=== PATIENT | female | born 1950 | race Hispanic/Latino ===

== ENCOUNTER 2018-03-05 18:35 | Emergency (ER) | payer MEDICARE ==
[2018-03-05 18:57] LABS: APPEARANCE,URINE CLOUDY (CLEAR); BILIRUBIN,URINE SMALL (NEGATIVE); COLOR,URINE RED (YELLOW); GLUCOSE, URINE (UA) 500 mg/dL (NEGATIVE); KETONES,URINE 15 mg/dL (NEGATIVE); LEUKOCYTE ESTERASE ,URINE MODERATE (NEGATIVE); NITRATE,URINE POSITIVE (NEGATIVE); OCCULT BLOOD,URINE LARGE (NEGATIVE); PH,URINE 6.5 (5.0-8.0); PROTEIN,URINE >=300 (NEGATIVE)
[2018-03-05] MEDS ORDERED: LIDOCAINE HCL-MPF 1% 2ML VIAL ONE (19:06)
[2018-03-05] MEDS ORDERED: CEFTRIAXONE SODIUM 1 GM ONE (19:07)
[2018-03-05] MEDS ORDERED: PHENAZOPYRIDINE HCL 200 MG TABLET ONE (19:07)
[2018-03-05 19:14] LABS: BACTERIA,URINE Many /HPF (None Seen); RBC,URINE TNTC /HPF (0-1); SQUAMOUS EPITHELIAL CELL,UR 0-2 /HPF (0-2); WBC,URINE TNTC /HPF (0-1)
== END 2018-03-05 19:41 | disposition home or self-care (01) ==
LOC: EDH 18:35
DX: N30.01 Acute cystitis with hematuria (principal); I10 Essential (primary) hypertension; F41.9 Anxiety disorder, unspecified
CPT/HCPCS: 81001; 96372; 99283; J0696; J3490

== ENCOUNTER 2018-03-14 07:27 | Emergency (ER) | payer MEDICARE ==
[2018-03-14 07:59] LABS: BASOPHILS % (AUTO) 0.8 % (0.0-5.0); EOSINOPHILS % (AUTO) 2.5 % (0.0-8.0); HEMATOCRIT 47.8 % (36-48); MEAN CORPUSCULAR HEMOGLOBIN 27.6 pg (27.0-33.0); MEAN CORPUSCULAR HGB CONC 32.6 g/dL (32.0-36.0); MEAN CORPUSCULAR VOLUME 84.6 fL (79-99); MONOCYTES % (AUTO) 5.8 % (3.0-13.0); NEUTROPHILS % (AUTO) 55.9 % (40.0-77.0); NUCLEATED RED BLOOD CELLS 0.1 % (0.0-0.19); PLATELET COUNT (AUTO) 258 K/uL (130-400); RED BLOOD CELL COUNT(AUTO) 5.64 MIL/uL (4.00-5.50); RED CELL DISTRIBUTION WIDTH 12.5 % (11.0-15.5); WHITE BLOOD COUNT (AUTO) 7.5 K/uL (4.8-10.8)
[2018-03-14 08:09] LABS: CREATININE 0.6 mg/dL (0.5-1.5); POTASSIUM 3.9 mmol/L (3.5-5.1)
[2018-03-14 08:15] LABS: ALBUMIN 3.7 g/dL (3.5-5.0); BILIRUBIN,TOTAL 0.5 mg/dL (0.2-1.0); TOTAL PROTEIN, SERUM 8.3 g/dL (6.0-8.3)
== END 2018-03-14 08:34 | disposition home or self-care (01) ==
LOC: EDH 07:27
DX: K64.9 Unspecified hemorrhoids (principal); I10 Essential (primary) hypertension
CPT/HCPCS: 36415; 80053; 85025

== ENCOUNTER 2019-01-27 23:23 | Emergency (ER) | payer MEDICARE, OTHER ==
[2019-01-27] MEDS ORDERED: KETOROLAC TROMETHAMINE 15MG/ML ONE (23:58)
== END 2019-01-28 01:19 | disposition home or self-care (01) ==
LOC: EDH 23:23
DX: S83.8X1A Sprain of other specified parts of right knee, initial encounter (principal); F41.9 Anxiety disorder, unspecified; I10 Essential (primary) hypertension; X50.1XXA Overexertion from prolonged static or awkward postures, initial encounter; Y93.41 Activity, dancing; Y92.89 Other specified places as the place of occurrence of the external cause; Y99.8 Other external cause status
CPT/HCPCS: 73590; 96372; 99284; J1885

== ENCOUNTER 2020-11-24 06:22 | Emergency (ER) | payer OTHER ==
[~2020-11-24] VITALS: Ht 157.5 cm; Wt 62.6 kg
[2020-11-24 06:31] VITALS: BP 187/82
[2020-11-24 09:20] LABS: BASOPHILS % (AUTO) 0.2 % (0.0-5.0); EOSINOPHILS % (AUTO) 0.2 % (0.0-8.0); HEMATOCRIT 41.9 % (36-48); LYMPHOCYTES % (AUTO) 18.8 % (21.0-51.0); MEAN CORPUSCULAR HEMOGLOBIN 27.3 pg (27.0-33.0); MEAN CORPUSCULAR HGB CONC 32.2 g/dL (32.0-36.0); MEAN CORPUSCULAR VOLUME 84.8 fL (79-99); MONOCYTES % (AUTO) 6.7 % (3.0-13.0); NEUTROPHILS % (AUTO) 73.7 % (40.0-77.0); PLATELET COUNT (AUTO) 179 K/uL (130-400); RED BLOOD CELL COUNT(AUTO) 4.94 MIL/uL (4.00-5.50); RED CELL DISTRIBUTION WIDTH 12.5 % (11.0-15.5); WHITE BLOOD COUNT (AUTO) 4.9 K/uL (4.8-10.8)
[2020-11-24] MEDS ORDERED: CEFTRIAXONE 1G VIAL IVP ONE (09:30)
[2020-11-24 09:33] LABS: ALBUMIN 3.6 g/dL (3.5-5.0); CREATININE 0.8 mg/dL (0.5-1.5); POTASSIUM 3.8 mmol/L (3.5-5.1)
[2020-11-24 09:48] LABS: BILIRUBIN,TOTAL 0.3 mg/dL (0.2-1.0); TOTAL PROTEIN, SERUM 8.1 g/dL (6.0-8.3)
[2020-11-24] MEDS ORDERED: AZIT500T2 PO (10:21)
== END 2020-11-24 10:38 | disposition home or self-care (01) ==
LOC: EDH 06:22
DX: U07.1 COVID-19 (principal); E11.65 Type 2 diabetes mellitus with hyperglycemia; I10 Essential (primary) hypertension
CPT/HCPCS: 36415; 71045; 80053; 85025; 87635; 99284; C9803